=== PATIENT | male | born 1990 | race Caucasian/White ===

== ENCOUNTER 2017-07-05 17:50 | Emergency (ER) | payer MEDICAID ==
[2017-07-05 18:03] VITALS: BP 137/79
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
--- NOTE | 2017-07-06 08:25 | CR ---
Right shoulder: Three views of the right shoulder were obtained. Comparison: No previous right shoulder exam. Incidental bone islands are noted within the humeral head. Glenohumeral and acromioclavicular joint appear unremarkable. No fracture or other abnormality is identified. Impression: 1. No abnormality is seen on three-view right shoulder study. Diagnostic code #1
== END 2017-07-05 20:40 | disposition home or self-care (01) ==
LOC: JD.ED 17:50
DX: M25.511 Pain in right shoulder (principal); Z87.891 Personal history of nicotine dependence; Z98.890 Other specified postprocedural states
CPT/HCPCS: 73030-26-RT; 73030-RT; 99283

== ENCOUNTER 2021-09-05 13:02 | Emergency (ER) | payer MEDICAID ==
[2021-09-05 13:18] VITALS: BP 136/87; PULSE 70
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
--- NOTE | 2021-09-05 15:00 | CR ---
Right hand: 4 views of the right hand were obtained. Comparison: No prior hand exam is available. Fracture is identified within the corner base of the distal phalanx of the fifth finger. Mild displacement is seen of the fracture fragment. No additional fracture or other bony abnormality is appreciated. Soft tissue swelling is present. Impression: 1. Mildly displaced corner fracture within the distal phalanx of the right fifth finger. 2. Soft tissue swelling is noted. Diagnostic code #3
== END 2021-09-05 14:32 | disposition home or self-care (01) ==
LOC: JD.ED 13:02
DX: S62.666A Nondisplaced fracture of distal phalanx of right little finger, initial encounter for closed fracture (principal); X58.XXXA Exposure to other specified factors, initial encounter
CPT/HCPCS: 73130-26-RT; 73130-RT; 99283-25

== ENCOUNTER 2022-05-30 16:29 | Emergency (ER) | payer MEDICAID ==
[2022-05-30 18:55] VITALS: BP 114/71; PULSE 92
[2022-05-30] MEDS ORDERED: Ibuprofen 800 MG Tab PO ONE (19:07)
== END 2022-05-30 20:22 | disposition home or self-care (01) ==
LOC: JD.ED 16:29
DX: S60.221A Contusion of right hand, initial encounter (principal); W01.198A Fall on same level from slipping, tripping and stumbling with subsequent striking against other object, initial encounter
CPT/HCPCS: 73130; 99283; A9270

== ENCOUNTER 2024-12-08 14:37 | Emergency (ER) | payer MEDICAID ==
[2024-12-08] MEDS: HYDROmorphone 1 MG/ML Syringe IM ONE (16:20)
[2024-12-08 17:34] VITALS: BP 142/86; PULSE 96
== END 2024-12-08 17:30 | disposition home or self-care (01) ==
LOC: JD.ED 14:37
DX: S52.612A Displaced fracture of left ulna styloid process, initial encounter for closed fracture (principal); S52.591A Other fractures of lower end of right radius, initial encounter for closed fracture; S52.592A Other fractures of lower end of left radius, initial encounter for closed fracture; F17.210 Nicotine dependence, cigarettes, uncomplicated; Z79.899 Other long term (current) drug therapy; W19.XXXA Unspecified fall, initial encounter
CPT/HCPCS: 73110; 96372; 99283; J1171